=== PATIENT | male | born 1965 | race American Indian/Alaskan Native ===

== ENCOUNTER 2018-08-18 12:35 | Inpatient (IN) | payer OTHER ==
[2018-08-18 15:06] LABS: Hemoglobin 16.1 gm/dl (11.8-15.2); Mean Corpuscular HGB Conc 34 % (32-34); Mean Corpuscular Volume 90 fl (84-94); Platelet Count 254 K/mm3 (140-440); Red Blood Count 5.35 M/mm3 (3.65-5.03); Red Cell Distribution Width 14.7 % (13.2-15.2)
[2018-08-18 15:16] LABS: Calcium 9.7 mg/dL (8.4-10.2)
[2018-08-18 15:21] LABS: Creatine Kinase MB 8.8 ng/mL (0.0-4.0)
[2018-08-18 15:24] LABS: INR 1.02 (0.87-1.13)
[2018-08-18 15:25] LABS: Partial Thromboplastin Time 28.7 Sec. (24.2-36.6)
[2018-08-18] MEDS ORDERED: LASIX IV ONE (15:33)
--- NOTE | 2018-08-18 15:37 | Emergency Department Report ---
HPI - General Chief Complaint: Chest Pain Time Seen by Provider: 08/18/18 14:38 - HPI HPI: 53-year-old -Turkish male presents to the emergency department, sent in by the die forger, with complaint of some recent and her new-onset CHF. The patient was having some shortness of breath a few days ago and went to [facility] where he was evaluated in the emergency department, given some Lasix for diuresis, and then discharged home. He was recently seen his infectious disease doctor, Dr. iniguez, and was complaining of some cold like symptoms and the shortness of breath. That is how he got referred to [facility] cardiology. He was seeing Dr. James today and describing that the shortness of breath and same CHF-like symptoms have returned, and he was told to go to [facility] emergency Department for admission. Patient otherwise has a past history of diabetes, HIV, hypertension. He has been taking the Lasix that he was sent home on but says that it was not as effective as the IV medication he was previously getting. No recent travel. Patient also said that he had some chest pain while he was at the cardiology office earlier in the day but that has since resolved. ED Past Medical Hx - Past Medical History Previous Medical History?: Yes Hx Hypertension: Yes Hx Congestive Heart Failure: Yes Hx Diabetes: Yes Hx HIV: Yes - Surgical History Past Surgical History?: Yes Hx Appendectomy: Yes - Social History Smoking Status: Current Some Day Smoker Substance Use Type: None - Medications Home Medications: Home Medications Medication Instructions Recorded Confirmed Last Taken Type Azithromycin [Zithromax TAB] 600 mg PO Q48H 08/18/18 08/18/18 Unknown History Elviteg/Cob/Emtri/Tenof Alafen 1 each PO DAILY 08/18/18 08/18/18 Unknown History [Genvoya Tablet] Insulin Aspart Prot/Aspart(Nf) 20 units SQ QPM 08/18/18 08/18/18 Unknown History [Novolog Mix 70/30] Insulin Aspart Protam & Aspart 30 units SQ QAM 08/18/18 08/18/18 Unknown History [NovoLOG Mix 70-30 Flexpen] Multivitamin [Multiple Vitamins] 1 each PO DAILY 08/18/18 08/18/18 Unknown History ED Review of Systems ROS: Stated complaint: CHEST PAIN Other details as noted in HPI Comment: All other systems reviewed and negative Constitutional: denies: chills, fever Eyes: denies: eye pain, vision change ENT: denies: ear pain, throat pain Respiratory: shortness of breath, SOB with exertion. denies: cough Cardiovascular: chest pain. denies: palpitations Gastrointestinal: denies: nausea, vomiting Genitourinary: denies: dysuria, discharge Musculoskeletal: denies: back pain, arthralgia Skin: denies: rash, lesions Neurological: denies: headache, weakness Physical Exam - Physical Exam Vital Signs: Vital Signs 08/18/18 08/18/18 08/18/18 12:40 14:49 14:50 Temperature 98 F 98.6 F Pulse Rate 90 99 H Respiratory 18 19 21 Rate Blood Pressure 144/94 Blood Pressure 152/90 [Right] O2 Sat by Pulse 97 99 99 Oximetry Physical Exam: GENERAL: The patient is well-developed well-nourished. HEENT: Normocephalic. Atraumatic. Patient has moist mucous membranes. EYES: Extraocular motions are intact. Pupils are equal and reactive to light bilaterally. NECK: Supple. Trachea is midline. CHEST/LUNGS: Coarse breath sounds. No tachypnea or accessory muscle use. There is no respiratory distress noted. HEART/CARDIOVASCULAR: Regular. There is mild tachycardia. There is no obvious murmur. ABDOMEN: Abdomen is soft, nontender. Patient has normal bowel sounds. There is no abdominal distention. SKIN: Skin is warm and dry. NEURO: The patient is awake, alert, and oriented. The patient is cooperative. The patient has no focal neurologic deficits. The patient has normal speech. MUSCULOSKELETAL: There is no tenderness or deformity. There is no limitation range of motion. There is no evidence of acute injury. ED Course Vital Signs 08/18/18 08/18/18 08/18/18 12:40 14:49 14:50 Temperature 98 F 98.6 F Pulse Rate 90 99 H Respiratory 18 19 21 Rate Blood Pressure 144/94 Blood Pressure 152/90 [Right] O2 Sat by Pulse 97 99 99 Oximetry ED Medical Decision Making - Lab Data Result diagrams: 08/18/18 14:33 08/18/18 14:33 - EKG Data -: EKG Interpreted by Tx EKG shows normal: sinus rhythm, axis (left axis deviation), intervals, QRS complexes (left anterior fascicular block, LVH), ST-T waves Rate: normal - EKG Data When compared to previous EKG there are: previous EKG unavailable Interpretation: other (sinus rhythm, left anterior fascicular block, left axis deviation, LVH) - Radiology Data Radiology results: image reviewed interpreted by me: Chest x-ray shows some pulmonary vascular congestion. No obvious pneumonia. No pneumothorax - Medical Decision Making Patient has a history of some recent shortness of breath and volume overload and appears to have some new onset CHF. He was not admitted to the previous hospital and was sent in by the die forger for further evaluation, admission and probable echocardiogram. He is greater than 1200. Chest x-ray does show some signs of pulmonary vascular congestion. He was given some IV Lasix to start diuresis. He has been accepted for admission by the hospitalist, Dr. Lowe. - Differential Diagnosis CHF, Pneumonia, Venous Stasis, Asthma Critical Care Time: No Critical care attestation.: If time is entered above; I have spent that time in minutes in the direct care of this critically ill patient, excluding procedure time. ED Disposition Clinical Impression: Acute heart failure Qualifiers: Heart failure type: unspecified Qualified Code(s): I50.9 - Heart failure, unspecified CKD (chronic kidney disease) Qualifiers: Chronic kidney disease stage: unspecified stage Qualified Code(s): N18.9 - Chronic kidney disease, unspecified HIV (human immunodeficiency virus infection) Qualifiers: HIV symptom status: unspecified Qualified Code(s): B20 - Human immunodeficiency virus [HIV] disease Disposition: OP ADMIT IP TO THIS HOSP Is pt being admited?: Yes Condition: Fair Time of Disposition: 18:14
--- NOTE | 2018-08-18 15:43 | Consultation ---
History of Present Illness Consult date: 08/18/18 Requesting physician: BASILIO RIVERA Consult reason: congestive heart failure History of present illness: The pt is a 53 YO male with a past medical history of HTN (anti-hypertensives d/c'd one month ago due to normalized BPs), DM, diabetic neuropathy, HLP, CLD, HIV (follows Dr. Hannah), strong family history of premature CAD. He was seen in our office for consultation on 08/16/[address] Brenda James. At that appointment, he was found to have SOB, significant orthopnea and BLE swelling and was sent via EMS to [facility] ED for eval/management of suspected HF. At [facility] ED, he received IV lasix and was discharged home. He presented again to our office today with similar complaints. He states that his symptoms transiently improved after receiving IV lasix at [facility] ED and then symptoms returned overnight last night. He denies any chest pain, palpitations, n/v, diaphoresis, dizziness or syncope. He denies any prior cardiac issues, including CAD, AMI or HF. He has never had a cardiac w/u. Past History Past Medical History: diabetes, hyperlipidemia, other (HIV) Past Surgical History: hernia repair Social history: denies: smoking, alcohol abuse, prescription drug abuse Family history: CAD Medications and Allergies Allergies Allergy/AdvReac Type Severity Reaction Status Date / Time No Known Allergies Allergy Verified 08/18/18 12:59 Review of Systems Constitutional: no weight loss, no weight gain, no fever, no chills, no sweats Ears, nose, mouth and throat: no ear pain, no nose pain, no sinus pressure, no sinus pain Cardiovascular: orthopnea, edema, shortness of breath, dyspnea on exertion, paroxysmal nocturnal dyspnea, leg edema, decreased exercise tolerance, no chest pain, no palpitations, no rapid/irregular heart beat, no syncope, no lightheadedness Respiratory: shortness of breath, dyspnea on exertion, no cough, no congestion, no wheezing, no pain on inspiration Gastrointestinal: no abdominal pain, no nausea, no vomiting, no diarrhea, no constipation, no change in bowel habits Genitourinary Male: no dysuria, no hematuria, no flank pain, no discharge, no urinary frequency, no urinary hesitancy Musculoskeletal: no neck stiffness, no neck pain, no shooting arm pain, no arm numbness/tingling, no low back pain, no shooting leg pain, no leg numbness/ tingling Integumentary: no rash, no pruritis, no redness, no sores, no wounds Neurological: no head injury, no paralysis, no weakness, no parathesias, no numbness, no tingling, no seizures, no syncope Psychiatric: no anxiety Endocrine: no cold intolerance, no heat intolerance Hematologic/Lymphatic: no easy bruising, no easy bleeding Allergic/Immunologic: no allergic rhinitis, no wheezing Physical Examination Vital Signs Temp Pulse Resp BP Pulse Ox 98 F 90 18 144/94 97 08/18/18 12:40 08/18/18 12:40 08/18/18 12:40 08/18/18 12:40 08/18/18 12:40 General appearance: no acute distress HEENT: Positive: PERRL, Normocephaly, Mucus Membranes Moist Neck: Positive: neck supple, trachea midline Cardiac: Positive: Regular Rhythm, S1/S2, S3, Tachycardia Lungs: Positive: Decreased Breath Sounds Neuro: Positive: Grossly Intact Abdomen: Positive: Soft. Negative: Tender Skin: Negative: Rash, Wound Musculoskeletal: No Pain Extremities: Absent: edema Results 08/18/18 14:33 08/18/18 14:33 Cardiac Enzymes 08/18/18 Range/Units 14:33 CK-MB (CK-2) 8.8 H (0.0-4.0) ng/mL Coagulation 08/18/18 Range/Units 14:33 PT 13.8 (12.2-14.9) Sec. INR 1.02 (0.87-1.13) APTT 28.7 (24.2-36.6) Sec. CBC 08/18/18 Range/Units 14:33 WBC 7.6 (4.5-11.0) K/mm3 RBC 5.35 H (3.65-5.03) M/mm3 Hgb 16.1 H (11.8-15.2) gm/dl Hct 48.0 H (35.5-45.6) % Plt Count 254 (140-440) K/mm3 Lymph # [facility] Comprehensive Metabolic Panel 08/18/18 Range/Units 14:33 Sodium 142 (137-145) mmol/L Potassium 3.8 (3.6-5.0) mmol/L Chloride 100.7 (98-107) mmol/L Carbon Dioxide 28 (22-30) mmol/L BUN 19 (9-20) mg/dL Creatinine 1.7 H (0.8-1.5) mg/dL Glucose 55 L (75-100) mg/dL Calcium 9.7 (8.4-10.2) mg/dL - Imaging and Cardiology Echo: pending EKG: report reviewed, image reviewed EKG interpretations - Telemetry EKG Rhythm: Sinus Rhythm - EKG Sinus rhythms and dysrhythmias: sinus rhythm Chamber hypertrophy or enlargement: left ventricular hypertro Repolarization changes or abnormalities: repolarization abn secondary to ventric ular hypertrophy Assessment and Plan Initiate IV diuretics as renal indices permit. Optimize BP and HR - initiate coreg. Obtain echo. Further recs to follow per hospital course. The patient has been seen in conjunction with Dr. Easley who agrees with the assessment and plan of care. - Patient Problems (1) Acute heart failure Status: Acute (2) Sinus tachycardia Status: Acute (3) CKD (chronic kidney disease) Status: Chronic (4) Diabetes Status: Chronic (5) HTN (hypertension) Status: Chronic (6) Hyperlipidemia Status: Chronic (7) HIV (human immunodeficiency virus infection) Status: Chronic
[2018-08-18 16:42] LABS: Platelet Estimate Consistent w Auto; RBC Morphology Normal; Total Cells Counted 100
--- NOTE | 2018-08-18 16:51 | History and Physical Report ---
History of Present Illness Chief complaint: Im short of breath History of present illness: 53 YO Male with Obesity, HTN, CHF, HIV, Nicotine Dependence presents to ED for evaluation. Pt states that he has experienced shortness of breath over the past 2 weeks with persistent and worsening symptoms over the past 3 days. Pt acknowledges Orthopnea/PND, Decreased exercise tolerance, Dypsnea on exertion, and bilateral lower extremity swelling. Pt was seen and evaluated by his [employer] Sales Manager, DR. James and was instructed to seek further care. Pt transported to [facility] for further care and evaluation. Pt seen and evaluated in ED and found to have CHF Decompensation, and well as ARF. Pt admitted to Telemetry and initiated on CHF protocol. Cardiology consulted in ED. Pt denies fever, chills, CP, Palpitations, NVD, Trauma, Syncope, hemoptysis, unintentional weight loss, night sweats, prolonged travel/immobility, unilateral leg swelling, calf pain, individual/family history of DVT/PE. Past History Past Medical History: diabetes, hyperlipidemia, other (HIV) Past Surgical History: hernia repair Social history: denies: smoking, alcohol abuse, prescription drug abuse Family history: CAD Medications and Allergies Allergies Allergy/AdvReac Type Severity Reaction Status Date / Time No Known Allergies Allergy Verified 08/18/18 12:59 Home Medications Medication Instructions Recorded Confirmed Last Taken Type Azithromycin [Zithromax TAB] 600 mg PO Q48H 08/18/18 08/18/18 Unknown History Elviteg/Cob/Emtri/Tenof Alafen 1 each PO DAILY 08/18/18 08/18/18 Unknown History [Genvoya Tablet] Insulin Aspart Prot/Aspart(Nf) 20 units SQ QPM 08/18/18 08/18/18 Unknown History [Novolog Mix 70/30] Insulin Aspart Protam & Aspart 30 units SQ QAM 08/18/18 08/18/18 Unknown History [NovoLOG Mix 70-30 Flexpen] Multivitamin [Multiple Vitamins] 1 each PO DAILY 08/18/18 08/18/18 Unknown History Active Meds: Active Medications Carvedilol (Coreg) 6.25 mg PO BID CRISTO Review of Systems Constitutional: no weight loss, no weight gain, no fever, no chills Ears, nose, mouth and throat: no ear pain, no ear discharge, no tinnitis, no decreased hearing, no nose pain Cardiovascular: orthopnea, shortness of breath, dyspnea on exertion, paroxysmal nocturnal dyspnea, leg edema, decreased exercise tolerance, no chest pain, no palpitations, no rapid/irregular heart beat, no syncope, no lightheadedness Respiratory: no cough, no cough with sputum, no excessive sputum, no hemoptysis Gastrointestinal: no nausea, no vomiting, no diarrhea, no constipation Genitourinary Male: no hematuria, no flank pain, no discharge, no urinary frequency, no urinary hesitancy Rectal: no pain, no incontinence, no bleeding Musculoskeletal: no neck pain, no shooting arm pain, no arm numbness/tingling, no low back pain, no shooting leg pain Integumentary: no rash, no pruritis, no redness, no sores, no wounds Neurological: no weakness, no parathesias, no numbness, no tingling Psychiatric: no anxiety, no memory loss, no change in sleep habits, no sleep disturbances, no insomnia, no hypersomnia, no change in appetite Endocrine: no cold intolerance, no heat intolerance, no polyphagia, no excessive thirst, no polydipsia, no polyuria, no excessive sweating Hematologic/Lymphatic: no easy bruising, no easy bleeding, no lymphadenopathy, no lymphedema Allergic/Immunologic: no urticaria, no allergic rhinitis, no wheezing, no persistent infections, no anaphylaxis Exam - Constitutional Vitals: Temp Pulse Resp BP Pulse Ox 98.6 F 99 H 21 152/90 99 08/18/18 14:50 08/18/18 14:50 08/18/18 14:50 08/18/18 14:50 08/18/18 14:50 General appearance: Present: mild distress - EENT Eyes: Present: PERRL ENT: hearing intact, clear oral mucosa - Neck Neck: Present: supple, normal ROM - Respiratory Respiratory effort: labored Respiratory: bilateral: diminished, rhonchi - Cardiovascular Heart Sounds: Present: S1 & S2. Absent: rub, click - Extremities Extremities: pulses symmetrical Extremity abnormal: edema Peripheral Pulses: within normal limits - Abdominal General gastrointestinal: Present: soft, non-tender, non-distended, normal bowel sounds Male genitourinary: Present: normal - Integumentary Integumentary: Present: clear, warm, dry - Musculoskeletal Musculoskeletal: gait normal, strength equal bilaterally - Psychiatric Psychiatric: appropriate mood/affect, intact judgment & insight - Neurologic Neurologic: CNII-XII intact, moves all extremities Results - Labs CBC & Chem 7: 08/18/18 14:33 08/18/18 14:33 Labs: Abnormal lab results 08/18/18 08/18/18 08/18/18 Range/Units 14:33 14:33 14:33 RBC 5.35 H (3.65-5.03) M/mm3 Hgb 16.1 H (11.8-15.2) gm/dl Hct 48.0 H (35.5-45.6) % Seg Neuts % (Manual) 27.0 L (40.0-70.0) % Lymphocytes % (Manual) 64.0 H (13.4-35.0) % Creatinine 1.7 H (0.8-1.5) mg/dL Glucose 55 L (75-100) mg/dL Total Creatine Kinase 529 H (55-170) units/L CK-MB (CK-2) 8.8 H (0.0-4.0) ng/mL NT-Pro-B Natriuret Pep (0-900) pg/mL 08/18/18 Range/Units 14:33 RBC (3.65-5.03) M/mm3 Hgb (11.8-15.2) gm/dl Hct (35.5-45.6) % Seg Neuts % (Manual) (40.0-70.0) % Lymphocytes % (Manual) (13.4-35.0) % Creatinine (0.8-1.5) mg/dL Glucose (75-100) mg/dL Total Creatine Kinase (55-170) units/L CK-MB (CK-2) (0.0-4.0) ng/mL NT-Pro-B Natriuret Pep 1282 H (0-900) pg/mL Assessment and Plan - Patient Problems (1) CHF (congestive heart failure) Current Visit: Yes Status: Acute Qualifiers: Heart failure chronicity: acute Plan to address problem: Admit to telemetry, afterload reduction, diuresis, monitor uop q shift, daily weight, strict I/O, Echo, cardiology consulted in ED. (2) ARF (acute renal failure) with tubular necrosis Current Visit: Yes Status: Acute Plan to address problem: IVF resuscitation therapy as tolerated, monitor uop q shift, (3) Diabetes Current Visit: No Status: Chronic Plan to address problem: ADA diet, insulin, accu check (4) HIV (human immunodeficiency virus infection) Current Visit: No Status: Chronic Plan to address problem: Continue antiretroviral therapy, Outpatient ID F/U care (5) HTN (hypertension) Current Visit: No Status: Chronic Qualifiers: Hypertension type: essential hypertension Qualified Code(s): I10 - Essential (primary) hypertension Plan to address problem: Monitor BP q shift (6) DVT prophylaxis Current Visit: Yes Status: Acute Plan to address problem: SCD to BLE While in bed.
[2018-08-18] MEDS ORDERED: ZOFRAN IV PRN (16:54)
[2018-08-18] MEDS ORDERED: SODIUM CHLORIDE FLUSH SYRINGE 10 ML IV PRN (16:54)
[2018-08-18] MEDS ORDERED: PROVENTIL IH PRN (16:54)
[2018-08-18] MEDS ORDERED: TYLENOL PO PRN (16:54)
[2018-08-18] MEDS ORDERED: INSULIN ASPART PROT SQ SCH (18:00)
[2018-08-18] MEDS ORDERED: ASPART SQ SCH (18:00)
[2018-08-18] MEDS: LASIX IV SCH (18:18)
[2018-08-18] MEDS: COREG PO SCH (22:59)
[2018-08-18] MEDS: SODIUM CHLORIDE FLUSH SYRINGE 10 ML IV SCH (23:01)
--- NOTE | 2018-08-19 05:02 | XRay Report ---
FINAL REPORT EXAM: XR CHEST ROUTINE 2V HISTORY: Chest Pain TECHNIQUE: PA and lateral chest radiographs PRIORS: None. FINDINGS: No mediastinal shift. Cardiac silhouette is not enlarged. No pneumothorax, effusion, or focal pulmon clint opacity. No acute skeletal finding. IMPRESSION: No focal pulmonary opacity.
[2018-08-19 06:31] LABS: Calcium 8.9 mg/dL (8.4-10.2)
[2018-08-19] MEDS: LASIX IV SCH ×2 (06:46→17:48)
[2018-08-19] MEDS ORDERED: NON-FORMULARY (Elviteg/Cob/Emtri/Tenof Alafen [Genvoya Tablet] 1 EACH) PO SCH (10:00)
[2018-08-19] MEDS ORDERED: NON-FORMULARY (Multivitamin [Multiple Vitamins] 1 EACH) PO SCH (10:00)
[2018-08-19] MEDS: THERAGRAN Tab PO SCH (10:21)
[2018-08-19] MEDS: COREG PO SCH ×2 (10:21→22:07)
[2018-08-19] MEDS: SODIUM CHLORIDE FLUSH SYRINGE 10 ML IV SCH ×2 (10:23→22:09)
--- NOTE | 2018-08-19 11:48 | Progress Note ---
Assessment and Plan Assessment and plan: 53m who pw sob problems CHF (congestive heart failure) CKD Diabetes HIV (human immunodeficiency virus infection) HTN (hypertension) plan cardiology input appreciated, for echo and mpi judicious use of diuretics, avoid nephrotoxins cont insulins and BP meds Continue antiretroviral therapy, Outpatient ID F/U care DVT prophylaxis; chemical History Interval history: still c/o orthopnea, and DALEY no cp no cough, no wheeze no n/v/d Hospitalist Physical - Physical exam Narrative exam: General appearance: Present: mild distress - EENT Eyes: Present: PERRL ENT: hearing intact, clear oral mucosa - Neck Neck: Present: supple, normal ROM - Respiratory Respiratory effort: labored Respiratory: bilateral: diminished, rales - Cardiovascular Heart Sounds: Present: S1 & S2. Absent: rub, click - Extremities Extremities: pulses symmetrical Extremity abnormal: edema Peripheral Pulses: within normal limits - Abdominal General gastrointestinal: Present: soft, non-tender, non-distended, normal bowel sounds Male genitourinary: Present: normal - Integumentary Integumentary: Present: clear, warm, dry - Musculoskeletal Musculoskeletal: gait normal, strength equal bilaterally - Psychiatric Psychiatric: appropriate mood/affect, intact judgment & insight - Neurologic Neurologic: CNII-XII intact, moves all extremities - Constitutional Vitals: Temp Pulse Resp BP Pulse Ox 99.1 F 84 18 130/80 95 08/19/18 09:29 08/19/18 10:21 08/19/18 09:30 08/19/18 10:21 08/19/18 09:30 General appearance: Present: mild distress Results - Labs CBC & Chem 7: 08/18/18 14:33 08/19/18 04:58 Labs: Laboratory Last Values WBC 7.6 K/mm3 (4.5-11.0) 08/18/18 14:33 RBC 5.35 M/mm3 (3.65-5.03) H 08/18/18 14:33 Hgb 16.1 gm/dl (11.8-15.2) H 08/18/18 14:33 Hct 48.0 % (35.5-45.6) H 08/18/18 14:33 MCV 90 fl (84-94) 08/18/18 14:33 MCH 30 pg (28-32) 08/18/18 14:33 MCHC 34 % (32-34) 08/18/18 14:33 RDW 14.7 % (13.2-15.2) 08/18/18 14:33 Plt Count 254 K/mm3 (140-440) 08/18/18 14:33 Lymph % (Auto) [employer]udge Filtration Operator 08/18/18 14:33 Lymph # Sludge Filtration Operator 08/18/18 14:33 Add Manual Diff Complete 08/18/18 14:33 Total Counted 100 08/18/18 14:33 Seg Neutrophils % Sludge Filtration Operator 08/18/18 14:33 Seg Neuts % (Manual) 27.0 % (40.0-70.0) L 08/18/18 14:33 Band Neutrophils % 0 % 08/18/18 14:33 Lymphocytes % (Manual) 64.0 % (13.4-35.0) H 08/18/18 14:33 Reactive Lymphs % (Man) 0 % 08/18/18 14:33 Monocytes % (Manual) 5.0 % (0.0-7.3) 08/18/18 14:33 Eosinophils % (Manual) 3.0 % (0.0-4.3) 08/18/18 14:33 Basophils % (Manual) 1.0 % (0.0-1.8) 08/18/18 14:33 Metamyelocytes % 0 % 08/18/18 14:33 Myelocytes % 0 % 08/18/18 14:33 Promyelocytes % 0 % 08/18/18 14:33 Blast Cells % 0 % 08/18/18 14:33 Nucleated RBC % Not Reportable 08/18/18 14:33 Seg Neutrophils # Man 2.1 K/mm3 (1.8-7.7) 08/18/18 14:33 Band Neutrophils # 0.0 K/mm3 08/18/18 14:33 Lymphocytes # (Manual) 4.9 K/mm3 (1.2-5.4) 08/18/18 14:33 Abs React Lymphs (Man) 0.0 K/mm3 08/18/18 14:33 Monocytes # (Manual) 0.4 K/mm3 (0.0-0.8) 08/18/18 14:33 Eosinophils # (Manual) 0.2 K/mm3 (0.0-0.4) 08/18/18 14:33 Basophils # (Manual) 0.1 K/mm3 (0.0-0.1) 08/18/18 14:33 Metamyelocytes # 0.0 K/mm3 08/18/18 14:33 Myelocytes # 0.0 K/mm3 08/18/18 14:33 Promyelocytes # 0.0 K/mm3 08/18/18 14:33 Blast Cells # 0.0 K/mm3 08/18/18 14:33 WBC Morphology Not Reportable 08/18/18 14:33 Hypersegmented Neuts Not Reportable 08/18/18 14:33 Hyposegmented Neuts Not Reportable 08/18/18 14:33 Hypogranular Neuts Not Reportable 08/18/18 14:33 Smudge Cells Not Reportable 08/18/18 14:33 Toxic Granulation Not Reportable 08/18/18 14:33 Toxic Vacuolation Not Reportable 08/18/18 14:33 Dohle Bodies Not Reportable 08/18/18 14:33 Pelger-Huet Anomaly Not Reportable 08/18/18 14:33 Moon Rods Not Reportable 08/18/18 14:33 Platelet Estimate Consistent w auto 08/18/18 14:33 Clumped Platelets Not Reportable 08/18/18 14:33 Plt Clumps, EDTA Not Reportable 08/18/18 14:33 Large Platelets Not Reportable 08/18/18 14:33 Giant Platelets Not Reportable 08/18/18 14:33 Platelet Satelliting Not Reportable 08/18/18 14:33 Plt Morphology Comment Not Reportable 08/18/18 14:33 RBC Morphology Normal 08/18/18 14:33 Dimorphic RBCs Not Reportable 08/18/18 14:33 Polychromasia Not Reportable 08/18/18 14:33 Hypochromasia Not Reportable 08/18/18 14:33 Poikilocytosis Not Reportable 08/18/18 14:33 Anisocytosis Not Reportable 08/18/18 14:33 Microcytosis Not Reportable 08/18/18 14:33 Macrocytosis Not Reportable 08/18/18 14:33 Spherocytes Not Reportable 08/18/18 14:33 Pappenheimer Bodies Not Reportable 08/18/18 14:33 Sickle Cells Not Reportable 08/18/18 14:33 Target Cells Not Reportable 08/18/18 14:33 Tear Drop Cells Not Reportable 08/18/18 14:33 Ovalocytes Not Reportable 08/18/18 14:33 Helmet Cells Not Reportable 08/18/18 14:33 [place] Bodies Not Reportable 08/18/18 14:33 [place] Rings Not Reportable 08/18/18 14:33 Pedro Luis Cells Not Reportable 08/18/18 14:33 Bite Cells Not Reportable 08/18/18 14:33 Crenated Cell Not Reportable 08/18/18 14:33 Elliptocytes Not Reportable 08/18/18 14:33 Acanthocytes (Spur) Not Reportable 08/18/18 14:33 Rouleaux Not Reportable 08/18/18 14:33 Hemoglobin C Crystals Not Reportable 08/18/18 14:33 Schistocytes Not Reportable 08/18/18 14:33 Malaria parasites Not Reportable 08/18/18 14:33 Joey Bodies Not Reportable 08/18/18 14:33 Hem Pathologist Commnt No 08/18/18 14:33 PT 13.8 Sec. (12.2-14.9) 08/18/18 14:33 INR 1.02 (0.87-1.13) 08/18/18 14:33 APTT 28.7 Sec. (24.2-36.6) 08/18/18 14:33 Sodium 141 mmol/L (137-145) 08/19/18 04:58 Potassium 3.5 mmol/L (3.6-5.0) L 08/19/18 04:58 Chloride 101.0 mmol/L (98-107) 08/19/18 04:58 Carbon Dioxide 27 mmol/L (22-30) 08/19/18 04:58 Anion Gap 17 mmol/L 08/19/18 04:58 BUN 20 mg/dL (9-20) 08/19/18 04:58 Creatinine 1.6 mg/dL (0.8-1.5) H 08/19/18 04:58 Estimated GFR 55 ml/min 08/19/18 04:58 BUN/Creatinine Ratio 13 % 08/19/18 04:58 Glucose 118 mg/dL (75-100) H 08/19/18 04:58 POC Glucose 104 (70-105) 08/19/18 06:50 Calcium 8.9 mg/dL (8.4-10.2) 08/19/18 04:58 Total Creatine Kinase 529 units/L (55-170) H 08/18/18 14:33 CK-MB (CK-2) 8.8 ng/mL (0.0-4.0) H 08/18/18 14:33 CK-MB (CK-2) Rel Index 1.6 (0-4) 08/18/18 14:33 Troponin T < 0.010 ng/mL (0.00-0.029) 08/18/18 20:34 NT-Pro-B Natriuret Pep 1282 pg/mL (0-900) H 08/18/18 14:33 TSH 1.510 mlU/mL (0.270-4.200) 08/18/18 14:33 Free T4 1.19 ng/dL (0.76-1.46) 08/18/18 14:33
--- NOTE | 2018-08-19 14:15 | Progress Note ---
Assessment and Plan The pt is a 53 YO male with a past medical history of HTN (anti-hypertensives d/c'd one month ago due to normalized BPs), DM, diabetic neuropathy, HLP, CLD, HIV (follows Dr. Hannah), strong family history of premature CAD. He was seen in our office for consultation on 08/16/[address] Brenda James. At that appointment, he was found to have SOB, significant orthopnea and BLE swelling and was sent via EMS to [facility] ED for eval/management of suspected HF. At [facility] ED, he received IV lasix and was discharged home. He presented again to our office today with similar complaints. He states that his symptoms transiently improved after receiving IV lasix at [facility] ED and then symptoms returned overnight last night. He denies any chest pain, palpitations, n/v, diaphoresis, dizziness or syncope. He denies any prior cardiac issues, including CAD, AMI or HF. He has never had a cardiac w/u. 08/19/2018>patient is feeling better,never had cardiac w/u done,echo not done yet.May need ischemic w/u.Continue present rx. Cardiac enzymes are not indicative of acute myocardial injury.Non specific changes noted. - Patient Problems (1) Acute heart failure Current Visit: Yes Status: Acute Qualifiers: Heart failure type: unspecified Qualified Code(s): I50.9 - Heart failure, unspecified (2) CKD (chronic kidney disease) Current Visit: Yes Status: Chronic Qualifiers: Chronic kidney disease stage: unspecified stage Qualified Code(s): N18.9 - Chronic kidney disease, unspecified (3) HIV (human immunodeficiency virus infection) Current Visit: Yes Status: Chronic Qualifiers: HIV symptom status: unspecified Qualified Code(s): B20 - Human immunodeficiency virus [HIV] disease (4) Diabetes Current Visit: No Status: Chronic Subjective Date of service: 08/19/18 Interval history: Patient's SOB much improved.Ambulating more.No chest pain. Objective Vital Signs Temp Pulse Pulse Pulse Resp Resp Resp 08/19/18 13:23 98.7 F 08/19/18 13:21 92 H 18 08/19/18 10:21 84 08/19/18 10:00 20 20 20 08/19/18 09:30 88 18 08/19/18 09:29 99.1 F 08/19/18 06:00 90 08/19/18 05:46 98.5 F 81 20 08/19/18 00:13 98.0 F 90 20 08/18/18 22:59 93 H 08/18/18 22:00 90 90 90 18 08/18/18 21:45 98.4 F 93 H 20 08/18/18 20:40 95 H 20 08/18/18 20:38 98.0 F 94 H 18 08/18/18 20:30 96 H 19 08/18/18 20:24 110 H 08/18/18 20:10 93 H 21 08/18/18 20:00 90 19 08/18/18 19:50 94 H 18 08/18/18 19:40 91 H 20 08/18/18 19:30 90 19 08/18/18 19:20 86 24 08/18/18 19:17 90 18 08/18/18 19:10 100 H 08/18/18 15:46 108 H 19 08/18/18 15:41 120 H 29 H 08/18/18 15:30 109 H 13 08/18/18 15:00 93 H 23 08/18/18 14:50 98.6 F 99 H 21 08/18/18 14:49 19 08/18/18 14:44 BP BP Pulse Ox 08/19/18 13:23 08/19/18 13:21 130/80 93 08/19/18 10:21 130/80 08/19/18 10:00 08/19/18 09:30 129/83 95 08/19/18 09:29 08/19/18 06:00 08/19/18 05:46 125/77 93 08/19/18 00:13 112/77 94 08/18/18 22:59 122/72 08/18/18 22:00 08/18/18 21:45 134/76 96 08/18/18 20:40 122/72 95 08/18/18 20:38 122/72 08/18/18 20:30 122/72 96 08/18/18 20:24 122/72 08/18/18 20:10 122/72 96 08/18/18 20:00 122/72 90 08/18/18 19:50 145/86 95 08/18/18 19:40 145/86 93 08/18/18 19:30 127/80 96 08/18/18 19:20 127/80 95 08/18/18 19:17 127/80 97 08/18/18 19:10 145/86 08/18/18 15:46 145/86 95 08/18/18 15:41 145/86 95 08/18/18 15:30 152/90 99 08/18/18 15:00 145/86 97 08/18/18 14:50 152/90 99 08/18/18 14:49 99 08/18/18 14:44 99 - Physical Examination HEENT: Positive: PERRL, Normocephaly, Mucus Membranes Moist Neck: Positive: neck supple, trachea midline Cardiac: Positive: Regular Rhythm, S4 Lungs: Positive: Decreased Breath Sounds Neuro: Positive: Grossly Intact Abdomen: Positive: Soft, Active Bowel Sounds. Negative: Tender Skin: Negative: Rash, Wound Musculoskeletal: No Pain Extremities: Absent: edema - Labs and Meds Cardiac Enzymes 08/18/18 Range/Units 14:33 CK-MB (CK-2) 8.8 H (0.0-4.0) ng/mL Coagulation 08/18/18 Range/Units 14:33 PT 13.8 (12.2-14.9) Sec. INR 1.02 (0.87-1.13) APTT 28.7 (24.2-36.6) Sec. CBC 08/18/18 Range/Units 14:33 WBC 7.6 (4.5-11.0) K/mm3 RBC 5.35 H (3.65-5.03) M/mm3 Hgb 16.1 H (11.8-15.2) gm/dl Hct 48.0 H (35.5-45.6) % Plt Count 254 (140-440) K/mm3 Lymph # Feed Mixer Comprehensive Metabolic Panel 08/18/18 08/19/18 Range/Units 14:33 04:58 Sodium 142 141 (137-145) mmol/L Potassium 3.8 3.5 L (3.6-5.0) mmol/L Chloride 100.7 101.0 (98-107) mmol/L Carbon Dioxide 28 27 (22-30) mmol/L BUN 19 20 (9-20) mg/dL Creatinine 1.7 H 1.6 H (0.8-1.5) mg/dL Glucose 55 L 118 H (75-100) mg/dL Calcium 9.7 8.9 (8.4-10.2) mg/dL - Imaging and Cardiology EKG: report reviewed, image reviewed Echo: pending - EKG Sinus rhythms and dysrhythmias: sinus rhythm Chamber hypertrophy or enlargement: left ventricular hypertro Repolarization changes or abnormalities: repolarization abn secondary to ventricular hypertrophy
[2018-08-19] MEDS ORDERED: ZITHROMAX PO SCH (22:00)
[2018-08-20 06:36] LABS: Calcium 8.8 mg/dL (8.4-10.2)
[2018-08-20] MEDS: LASIX IV SCH ×2 (06:49→17:53)
--- NOTE | 2018-08-20 10:54 | Progress Note ---
Assessment and Plan Assessment and plan: 53m who pw sob problems CHF (congestive heart failure) CKD Diabetes HIV (human immunodeficiency virus infection) HTN (hypertension) plan cardiology input appreciated, for echo and mpi judicious use of diuretics, avoid nephrotoxins cont insulins and BP meds Continue antiretroviral therapy, Outpatient ID F/U care DVT prophylaxis; chemical History Interval history: still c/o orthopnea, and DALEY no cp no cough, no wheeze no n/v/d Hospitalist Physical - Physical exam Narrative exam: General appearance: Present: mild distress - EENT Eyes: Present: PERRL ENT: hearing intact, clear oral mucosa - Neck Neck: Present: supple, normal ROM - Respiratory Respiratory effort: labored Respiratory: bilateral: diminished, rales - Cardiovascular Heart Sounds: Present: S1 & S2. Absent: rub, click - Extremities Extremities: pulses symmetrical Extremity abnormal: edema Peripheral Pulses: within normal limits - Abdominal General gastrointestinal: Present: soft, non-tender, non-distended, normal bowel sounds Male genitourinary: Present: normal - Integumentary Integumentary: Present: clear, warm, dry - Musculoskeletal Musculoskeletal: gait normal, strength equal bilaterally - Psychiatric Psychiatric: appropriate mood/affect, intact judgment & insight - Neurologic Neurologic: CNII-XII intact, moves all extremities - Constitutional Vitals: Temp Pulse Resp BP Pulse Ox 98.3 F 88 17 111/82 97 08/20/18 04:19 08/20/18 10:00 08/20/18 04:19 08/20/18 04:19 08/20/18 08:44 General appearance: Present: mild distress Results - Labs CBC & Chem 7: 08/18/18 14:33 08/20/18 05:17 Labs: Laboratory Last Values WBC 7.6 K/mm3 (4.5-11.0) 08/18/18 14:33 RBC 5.35 M/mm3 (3.65-5.03) H 08/18/18 14:33 Hgb 16.1 gm/dl (11.8-15.2) H 08/18/18 14:33 Hct 48.0 % (35.5-45.6) H 08/18/18 14:33 MCV 90 fl (84-94) 08/18/18 14:33 MCH 30 pg (28-32) 08/18/18 14:33 MCHC 34 % (32-34) 08/18/18 14:33 RDW 14.7 % (13.2-15.2) 08/18/18 14:33 Plt Count 254 K/mm3 (140-440) 08/18/18 14:33 Lymph % (Auto) [place] St[employer] Machine Operator 08/18/18 14:33 Lymph # [place] St[employer] Machine Operator 08/18/18 14:33 Add Manual Diff Complete 08/18/18 14:33 Total Counted 100 08/18/18 14:33 Seg Neutrophils % [place] St[employer] Machine Operator 08/18/18 14:33 Seg Neuts % (Manual) 27.0 % (40.0-70.0) L 08/18/18 14:33 Band Neutrophils % 0 % 08/18/18 14:33 Lymphocytes % (Manual) 64.0 % (13.4-35.0) H 08/18/18 14:33 Reactive Lymphs % (Man) 0 % 08/18/18 14:33 Monocytes % (Manual) 5.0 % (0.0-7.3) 08/18/18 14:33 Eosinophils % (Manual) 3.0 % (0.0-4.3) 08/18/18 14:33 Basophils % (Manual) 1.0 % (0.0-1.8) 08/18/18 14:33 Metamyelocytes % 0 % 08/18/18 14:33 Myelocytes % 0 % 08/18/18 14:33 Promyelocytes % 0 % 08/18/18 14:33 Blast Cells % 0 % 08/18/18 14:33 Nucleated RBC % Not Reportable 08/18/18 14:33 Seg Neutrophils # Man 2.1 K/mm3 (1.8-7.7) 08/18/18 14:33 Band Neutrophils # 0.0 K/mm3 08/18/18 14:33 Lymphocytes # (Manual) 4.9 K/mm3 (1.2-5.4) 08/18/18 14:33 Abs React Lymphs (Man) 0.0 K/mm3 08/18/18 14:33 Monocytes # (Manual) 0.4 K/mm3 (0.0-0.8) 08/18/18 14:33 Eosinophils # (Manual) 0.2 K/mm3 (0.0-0.4) 08/18/18 14:33 Basophils # (Manual) 0.1 K/mm3 (0.0-0.1) 08/18/18 14:33 Metamyelocytes # 0.0 K/mm3 08/18/18 14:33 Myelocytes # 0.0 K/mm3 08/18/18 14:33 Promyelocytes # 0.0 K/mm3 08/18/18 14:33 Blast Cells # 0.0 K/mm3 08/18/18 14:33 WBC Morphology Not Reportable 08/18/18 14:33 Hypersegmented Neuts Not Reportable 08/18/18 14:33 Hyposegmented Neuts Not Reportable 08/18/18 14:33 Hypogranular Neuts Not Reportable 08/18/18 14:33 Smudge Cells Not Reportable 08/18/18 14:33 Toxic Granulation Not Reportable 08/18/18 14:33 Toxic Vacuolation Not Reportable 08/18/18 14:33 Dohle Bodies Not Reportable 08/18/18 14:33 Pelger-Huet Anomaly Not Reportable 08/18/18 14:33 Moon Rods Not Reportable 08/18/18 14:33 Platelet Estimate Consistent w auto 08/18/18 14:33 Clumped Platelets Not Reportable 08/18/18 14:33 Plt Clumps, EDTA Not Reportable 08/18/18 14:33 Large Platelets Not Reportable 08/18/18 14:33 Giant Platelets Not Reportable 08/18/18 14:33 Platelet Satelliting Not Reportable 08/18/18 14:33 Plt Morphology Comment Not Reportable 08/18/18 14:33 RBC Morphology Normal 08/18/18 14:33 Dimorphic RBCs Not Reportable 08/18/18 14:33 Polychromasia Not Reportable 08/18/18 14:33 Hypochromasia Not Reportable 08/18/18 14:33 Poikilocytosis Not Reportable 08/18/18 14:33 Anisocytosis Not Reportable 08/18/18 14:33 Microcytosis Not Reportable 08/18/18 14:33 Macrocytosis Not Reportable 08/18/18 14:33 Spherocytes Not Reportable 08/18/18 14:33 Pappenheimer Bodies Not Reportable 08/18/18 14:33 Sickle Cells Not Reportable 08/18/18 14:33 Target Cells Not Reportable 08/18/18 14:33 Tear Drop Cells Not Reportable 08/18/18 14:33 Ovalocytes Not Reportable 08/18/18 14:33 Helmet Cells Not Reportable 08/18/18 14:33 [place] Bodies Not Reportable 08/18/18 14:33 [place] Rings Not Reportable 08/18/18 14:33 Pedro Luis Cells Not Reportable 08/18/18 14:33 Bite Cells Not Reportable 08/18/18 14:33 Crenated Cell Not Reportable 08/18/18 14:33 Elliptocytes Not Reportable 08/18/18 14:33 Acanthocytes (Spur) Not Reportable 08/18/18 14:33 Rouleaux Not Reportable 08/18/18 14:33 Hemoglobin C Crystals Not Reportable 08/18/18 14:33 Schistocytes Not Reportable 08/18/18 14:33 Malaria parasites Not Reportable 08/18/18 14:33 Joey Bodies Not Reportable 08/18/18 14:33 Hem Pathologist Commnt No 08/18/18 14:33 PT 13.8 Sec. (12.2-14.9) 08/18/18 14:33 INR 1.02 (0.87-1.13) 08/18/18 14:33 APTT 28.7 Sec. (24.2-36.6) 08/18/18 14:33 Sodium 141 mmol/L (137-145) 08/20/18 05:17 Potassium 3.8 mmol/L (3.6-5.0) 08/20/18 05:17 Chloride 102.3 mmol/L (98-107) 08/20/18 05:17 Carbon Dioxide 27 mmol/L (22-30) 08/20/18 05:17 Anion Gap 16 mmol/L 08/20/18 05:17 BUN 25 mg/dL (9-20) H 08/20/18 05:17 Creatinine 1.7 mg/dL (0.8-1.5) H 08/20/18 05:17 Estimated GFR 51 ml/min 08/20/18 05:17 BUN/Creatinine Ratio 15 % 08/20/18 05:17 Glucose 143 mg/dL (75-100) H 08/20/18 05:17 POC Glucose 129 (70-105) H 08/20/18 06:00 Calcium 8.8 mg/dL (8.4-10.2) 08/20/18 05:17 Total Creatine Kinase 529 units/L (55-170) H 08/18/18 14:33 CK-MB (CK-2) 8.8 ng/mL (0.0-4.0) H 08/18/18 14:33 CK-MB (CK-2) Rel Index 1.6 (0-4) 08/18/18 14:33 Troponin T < 0.010 ng/mL (0.00-0.029) 08/18/18 20:34 NT-Pro-B Natriuret Pep 1282 pg/mL (0-900) H 08/18/18 14:33 TSH 1.510 mlU/mL (0.270-4.200) 08/18/18 14:33 Free T4 1.19 ng/dL (0.76-1.46) 08/18/18 14:33
[2018-08-20] MEDS: COREG PO SCH ×2 (11:05→21:45)
[2018-08-20] MEDS: THERAGRAN Tab PO SCH (11:05)
[2018-08-20] MEDS: SODIUM CHLORIDE FLUSH SYRINGE 10 ML IV SCH ×2 (11:05→21:46)
--- NOTE | 2018-08-20 13:45 | Progress Note ---
Assessment and Plan The pt is a 53 YO male with a past medical history of HTN (anti-hypertensives d/c'd one month ago due to normalized BPs), DM, diabetic neuropathy, HLP, CLD, HIV (follows Dr. Hannah), strong family history of premature CAD. He was seen in our office for consultation on 08/16/[address] Brenda James. At that appointment, he was found to have SOB, significant orthopnea and BLE swelling and was sent via EMS to [facility] ED for eval/management of suspected HF. At [facility] ED, he received IV lasix and was discharged home. He presented again to our office today with similar complaints. He states that his symptoms transiently improved after receiving IV lasix at [facility] ED and then symptoms returned overnight last night. He denies any chest pain, palpitations, n/v, diaphoresis, dizziness or syncope. He denies any prior cardiac issues, including CAD, AMI or HF. He has never had a cardiac w/u. 08/19/2018>patient is feeling better,never had cardiac w/u done,echo not done yet.May need ischemic w/u.Continue present rx. Cardiac enzymes are not indicative of acute myocardial injury.Non specific changes noted. 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 Will schedule for cath in AM. - Patient Problems (1) Acute heart failure Current Visit: Yes Status: Acute Qualifiers: Heart failure type: unspecified Qualified Code(s): I50.9 - Heart failure, unspecified (2) CKD (chronic kidney disease) Current Visit: Yes Status: Chronic Qualifiers: Chronic kidney disease stage: unspecified stage Qualified Code(s): N18.9 - Chronic kidney disease, unspecified (3) HIV (human immunodeficiency virus infection) Current Visit: Yes Status: Chronic Qualifiers: HIV symptom status: unspecified Qualified Code(s): B20 - Human immunodeficiency virus [HIV] disease (4) Diabetes Current Visit: No Status: Chronic Subjective Date of service: 08/20/18 Interval history: SOB better. Objective Vital Signs Temp Pulse Pulse Resp BP Pulse Ox 08/20/18 11:22 86 18 119/81 95 08/20/18 11:21 98.3 F 08/20/18 10:00 88 08/20/18 08:44 97 08/20/18 06:00 83 08/20/18 04:19 98.3 F 83 17 111/82 92 08/19/18 23:25 98.4 F 84 17 127/77 94 08/19/18 22:07 87 126/73 08/19/18 22:00 87 87 18 08/19/18 21:55 96 08/19/18 19:19 98.4 F 87 17 126/73 93 08/19/18 17:17 84 18 122/84 96 08/19/18 17:16 98.2 F 08/19/18 14:00 88 - Physical Examination HEENT: Positive: PERRL, Normocephaly, Mucus Membranes Moist Neck: Positive: neck supple, trachea midline Cardiac: Positive: Regular Rhythm Lungs: Positive: Decreased Breath Sounds Neuro: Positive: Grossly Intact Abdomen: Positive: Soft, Active Bowel Sounds. Negative: Tender Skin: Negative: Rash, Wound Musculoskeletal: No Pain Extremities: Absent: edema - Labs and Meds Comprehensive Metabolic Panel 08/20/18 Range/Units 05:17 Sodium 141 (137-145) mmol/L Potassium 3.8 (3.6-5.0) mmol/L Chloride 102.3 (98-107) mmol/L Carbon Dioxide 27 (22-30) mmol/L BUN 25 H (9-20) mg/dL Creatinine 1.7 H (0.8-1.5) mg/dL Glucose 143 H (75-100) mg/dL Calcium 8.8 (8.4-10.2) mg/dL - Imaging and Cardiology EKG: report reviewed, image reviewed Echo: pending - EKG Sinus rhythms and dysrhythmias: sinus rhythm Chamber hypertrophy or enlargement: left ventricular hypertro Repolarization changes or abnormalities: repolarization abn secondary to ventricular hypertrophy
[2018-08-20] MEDS ORDERED: NACL 0.9% 500 ML 500 ML IV SCH (14:00)
[2018-08-20 14:43] LABS: Calcium 9.1 mg/dL (8.4-10.2)
[2018-08-21 06:09] LABS: INR 1.21 (0.87-1.13)
[2018-08-21 06:21] LABS: Calcium 8.9 mg/dL (8.4-10.2)
[2018-08-21 07:09] VITALS: BP 124/88
[2018-08-21] MEDS ORDERED: ECOTRIN PO ONE (07:57)
[2018-08-21] MEDS ORDERED: NACL 0.9% 500 ML 500 ML ONE (08:03)
[2018-08-21] MEDS ORDERED: HEPARIN/NS 5000 UNIT/500ML(CATH LAB) 1,000 ML IR ONE (08:22)
[2018-08-21] MEDS ORDERED: NITROGLYCERIN SYRINGE 0 ML ONE (08:22)
[2018-08-21] MEDS ORDERED: CALAN ONE (08:22)
[2018-08-21] MEDS ORDERED: HEPARIN 10,000 UNITS/10 ML ONE (08:22)
[2018-08-21] MEDS: SUBLIMAZE ONE ×2 (09:02→09:14)
[2018-08-21] MEDS: VERSED ONE ×2 (09:02→09:14)
[2018-08-21] MEDS: XYLOCAINE 2% INFILTRATI ONE ×2 (09:03→09:18)
--- NOTE | 2018-08-21 10:20 | Progress Note ---
Assessment and Plan S/p [facility] this AM which showed essentially normal coronary arteries. Initiate losartan, cont coreg. Convert IV lasix to PO 40mg daily. Monitor BMP as OP. Echocardiogram showed ?thrombus in apex which appears chronic. Currently stable cardiac status. Pt may discharge home this afternoon following completion of post-cath order set. Follow up in our [place] office for BMP and appt with Dr. Brenda James on 09/01/2018 @ 1:30PM. The patient has been seen in conjunction with Dr. Ty who agrees with the assessment and plan of care. - Patient Problems (1) Acute HFrEF (heart failure with reduced ejection fraction) Current Visit: Yes Status: Acute (2) Nonischemic cardiomyopathy Current Visit: Yes Status: Chronic (3) Sinus tachycardia Current Visit: No Status: Acute (4) CKD (chronic kidney disease) Current Visit: Yes Status: Chronic Qualifiers: Chronic kidney disease stage: unspecified stage Qualified Code(s): N18.9 - Chronic kidney disease, unspecified (5) Diabetes Current Visit: No Status: Chronic (6) HTN (hypertension) Current Visit: No Status: Chronic Qualifiers: Hypertension type: essential hypertension Qualified Code(s): I10 - Essential (primary) hypertension (7) Hyperlipidemia Current Visit: No Status: Chronic (8) HIV (human immunodeficiency virus infection) Current Visit: Yes Status: Chronic Qualifiers: HIV symptom status: unspecified Qualified Code(s): B20 - Human immunodeficiency virus [HIV] disease (9) LV (left ventricular) mural thrombus Current Visit: Yes Status: Chronic Subjective Date of service: 08/21/18 Principal diagnosis: HF Interval history: pt for [facility] this AM, no current complaints. Objective Last Vital Signs Temp 97.8 F 08/21/18 05:18 Pulse 97 H 08/21/18 05:18 Resp 20 08/21/18 05:18 BP 124/88 08/21/18 05:18 Pulse Ox 96 08/21/18 05:18 - Physical Examination General: Appears Well, No Apparent Distress HEENT: Positive: PERRL, Normocephaly, Mucus Membranes Moist Neck: Positive: neck supple, trachea midline Cardiac: Positive: Reg Rate and Rhythm, S1/S2 Lungs: Positive: clear to auscultation Neuro: Positive: Grossly Intact Abdomen: Positive: Soft, Active Bowel Sounds. Negative: Tender Skin: Negative: Rash, Wound Musculoskeletal: No Pain Extremities: Absent: edema - Labs and Meds Coagulation 08/21/18 Range/Units 05:36 PT 15.7 H (12.2-14.9) Sec. INR 1.21 H (0.87-1.13) APTT 20.0 L (24.2-36.6) Sec. Comprehensive Metabolic Panel 08/20/18 08/21/18 Range/Units 13:54 05:36 Sodium 137 141 (137-145) mmol/L Potassium 3.8 3.6 (3.6-5.0) mmol/L Chloride 97.3 L 99.4 (98-107) mmol/L Carbon Dioxide 27 28 (22-30) mmol/L BUN 24 H 26 H (9-20) mg/dL Creatinine 1.9 H 1.8 H (0.8-1.5) mg/dL Glucose 222 H 177 H (75-100) mg/dL Calcium 9.1 8.9 (8.4-10.2) mg/dL - Imaging and Cardiology EKG: report reviewed, image reviewed Echo: report reviewed (08/18/2018: EF 35-40%, mild to mod LVH, mod global hypokinesis, LA mildly dilated, mild AR, mild MR, RVSP 29mmHg, c/w organized thrombusthrombus visualized in LV apex) - Telemetry EKG Rhythm: Sinus Rhythm - EKG Sinus rhythms and dysrhythmias: sinus rhythm Chamber hypertrophy or enlargement: left ventricular hypertro Repolarization changes or abnormalities: repolarization abn secondary to ventricular hypertrophy
--- NOTE | 2018-08-21 11:34 | Discharge Summary ---
Providers - Providers Date of Admission: 08/18/18 16:54 Attending physician: SHANELL MEDLEY MD 08/18/18 16:13 Consult to Cardiology [CONS] Routine Consulting Provider: RAMESH KNOWLES Reason For Exam: CHF 08/21/18 10:22 Consult to Cardiac Rehabilitation [CONS] Routine Reason For Exam: Cardiac Rehab Evaluation Primary care physician: MARTINA RENTERIA MD Hospitalization Condition: Fair Hospital course: 53m who pw sob. he has been at [facility] emergency room where he received some diuretics. After which he went home, and had worsening orthopnea and paroxysmal nocturnal dyspnea. The patient presented with shortness of breath. He was diagnosed with systolic CHF, he received diuretics, his medications were optimized. Echo confirmed an EF of 35%. he then went on to have a cardiac cath that showed nonobstructive disease. The patient is to follow-up in cardiology clinic. He was continued on his medications for his chronic conditions which i nclude hypertension diabetes and HIV. His renal function was monitored during his hospital stay, nephrotoxins were avoided, and his creatinine remained stable. problems acute sytolic CHF (congestive heart failure) CKD stage 3 Diabetes HIV (human immunodeficiency virus infection) HTN (hypertension) Disposition: DC-01 TO HOME OR SELFCARE Time spent for discharge: 33 minutes Core Measure Documentation - Palliative Care Palliative Care/ Comfort Measures: Not Applicable - Core Measures Any of the following diagnoses?: heart failure - Heart Failure Discharge Requirements JACE/ARB for LVSD if EF <40%: Yes Beta kim at discharge: Yes Exam - Constitutional Vitals: Temp Pulse Resp BP Pulse Ox 97.8 F 97 H 20 124/88 96 08/21/18 05:18 08/21/18 05:18 08/21/18 05:18 08/21/18 05:18 08/21/18 05:18 General appearance: Present: no acute distress, well-nourished - EENT Eyes: Present: PERRL ENT: hearing intact, clear oral mucosa - Neck Neck: Present: supple, normal ROM - Respiratory Respiratory effort: normal Respiratory: bilateral: CTA - Cardiovascular Heart Sounds: Present: S1 & S2. Absent: rub, click - Extremities Extremities: pulses symmetrical, No edema Peripheral Pulses: within normal limits - Abdominal General gastrointestinal: Present: soft, non-tender, non-distended, normal bowel sounds Male genitourinary: Present: normal - Integumentary Integumentary: Present: clear, warm, dry - Musculoskeletal Musculoskeletal: gait normal, strength equal bilaterally - Psychiatric Psychiatric: appropriate mood/affect, intact judgment & insight - Neurologic Neurologic: CNII-XII intact, moves all extremities Plan Follow up with: PRIMARY CARE, [Primary Care Provider] - 3-5 Days TALAT JIANG MD [Staff Physician] - 7 Days (Follow up in our [place] office with Dr. Brenda Jiang on 09/01/2018 @ 1:30PM. ) Prescriptions: Aspirin [Aspirin BABY CHEW TAB] 81 mg PO QDAY #30 tab.chew Carvedilol [Coreg] 6.25 mg PO BID #60 tablet Furosemide [Lasix TAB] 40 mg PO QDAY #30 tablet Losartan [Cozaar] 25 mg PO QDAY #30 tablet
[2018-08-21] MEDS: COREG PO SCH (11:50)
[2018-08-21] MEDS: THERAGRAN Tab PO SCH (11:51)
[2018-08-21] MEDS: SODIUM CHLORIDE FLUSH SYRINGE 10 ML IV SCH (11:51)
--- NOTE | 2018-08-21 11:56 | Cardiac Catherization Report ---
LEFT HEART CATHETERIZATION CLINICAL INFORMATION: The patient is 53-year-old -[place] gentleman with a history of longstanding diabetes mellitus, hypertension, being HIV positive, was recently diagnosed, having increasing symptoms of leg swelling and shortness of breath, was diagnosed to have congestive heart failure, ejection fraction was found to be depressed in the range of 35-40% and there is a strong family history of coronary artery disease with father dying of myocardial infarction in his 40's. With his LV dysfunction and multiple coronary risk factors and new onset congestive heart failure, the patient was recommended cardiac catheterization for definitive diagnosis and treatment. The patient also was explained of the alternative of continued medical therapy and observation and risk factor modification. The patient decided to proceed with cardiac catheterization for definitive diagnosis and treatment. The patient was explained of the procedure and potential complications. DESCRIPTION OF PROCEDURE: The patient was brought to the catheterization laboratory in a fasting condition. It is to be noted the patient has a history of kidney problems; however, being monitored by crm dynamics developer for a long time stable kidney function. His creatinine has been stable in the hospital from 1.6-1.8. The patient was prepared in the standard fashion. Right wrist area and forearm thoroughly cleaned with chlorhexidine solution. The patient was evaluated for moderate sedation and was felt to be appropriate candidate and received 1 mg of Versed and 50 mg of fentanyl. Subsequently, local anesthesia was given in the right wrist area. Right radial artery puncture was made using 21-gauge arterial puncture needle. A 5-Burkinan slender sheath was introduced. Received 3000 units of intravenous heparin and 5 mg of intra-arterial verapamil. Using 5-Burkinan multipurpose catheter, left ventricular pressures were measured and subsequently using the same catheter, angiograms of the right coronary artery were obtained. A 5-Burkinan TIG catheter was used to obtain the angiograms of the left coronary artery. At the end of the procedure, catheter and sheath were removed. Good hemostasis was achieved. The patient tolerated the procedure well. No untoward complications were noted. The patient was sedated at 9:14 a.m. and monitored with hemodynamic monitoring, EKG monitoring and pulse oximetry up to 9:28 a.m. The patient at the end of the procedure is breathing normally and communicating well and no focal deficit noted. No untoward complications were noted. Findings were explained to the patient. Following findings were noted. HEMODYNAMICS: 1. Opening aortic pressure 125/87 and left ventricular pressure 125/19. No gradient across the aortic valve. Left ventriculogram was not performed because of underlying chronic kidney disease. 2. Right coronary artery dominant vessel arises normally from right coronary cusp, angiographically only very minimal irregularities were noted. Left coronary artery arises normally from left coronary cusp. Left main, LAD, which curves around the apex and its branches, circumflex artery and its branch are angiographically showing only minimal irregularities. FINAL IMPRESSION: Only minimal coronary artery disease noted. End-diastolic pressure of 19 mmHg noted. At this time, the patient appears to have dilated cardiomyopathy with ejection fraction of 35-40% on the echocardiogram. Considering this patient, will be continued on medical therapy and risk factor modification. The patient tolerated moderate sedation well without any side effects. The patient's BNP will be monitored. JOB# [id number] AVNI/LAQUITA EARL
[2018-08-22] MEDS ORDERED: COZAAR PO SCH (10:00)
[2018-08-22] MEDS ORDERED: LASIX PO SCH (10:00)
[2018-08-22] MEDS ORDERED: BABY ASPIRIN PO SCH (10:00)
== END 2018-08-21 13:35 | disposition home or self-care (01) | DRG 286 ==
LOC: ED 12:35 → 4A 16:54
PROVIDERS: ADMIT Internal Medicine; ATTEND Internal Medicine
PROC: 4A023N7 Measurement of Cardiac Sampling and Pressure, Left Heart, Percutaneous Approach (ICD-10-PCS; principal; 2018-08-21)
PROC: B2111ZZ Fluoroscopy of Multiple Coronary Arteries using Low Osmolar Contrast (ICD-10-PCS; 2018-08-21)
DX: I13.0 Hypertensive heart and chronic kidney disease with heart failure and stage 1 through stage 4 chronic kidney disease, or unspecified chronic kidney disease (principal); N17.0 Acute kidney failure with tubular necrosis; I50.23 Acute on chronic systolic (congestive) heart failure; I42.9 Cardiomyopathy, unspecified; E78.5 Hyperlipidemia, unspecified; Z82.49 Family history of ischemic heart disease and other diseases of the circulatory system; E66.9 Obesity, unspecified; E11.40 Type 2 diabetes mellitus with diabetic neuropathy, unspecified; N18.9 Chronic kidney disease, unspecified; E11.22 Type 2 diabetes mellitus with diabetic chronic kidney disease; F17.200 Nicotine dependence, unspecified, uncomplicated; I51.3 Intracardiac thrombosis, not elsewhere classified; Z21 Asymptomatic human immunodeficiency virus [HIV] infection status; Z68.30 Body mass index [BMI] 30.0-30.9, adult
CPT/HCPCS: 36415; 71046; 80048; 82550; 82553; 82962; 83880; 84439; 84443; 84484; 85007; 85025; 85610; 85730; 93005; 93010; 93306; 93454; 96374; G0378; C1887; C1894; J1644; J1815; J1940; J2250; J3010; J7040; Q9967